=== PATIENT | male | born 1980 | race African-American/Black ===

== ENCOUNTER 2020-03-15 10:25 | Emergency (ER) | payer BC, OTHER ==
[~2020-03-15] VITALS: Ht 180.3 cm; Wt 95.3 kg
[2020-03-15] MEDS ORDERED: NOHOMEMEDICATIONS (10:33)
[2020-03-15 12:34] LABS: ABSOLUTE NEUTROPHILS 4.9 thou/uL (1.4-8.2); BASOPHILS 0.3 % (0.0-2.0); EOSINOPHILS 1.4 % (0.0-3.0); HEMATOCRIT 44.3 % (42.0-52.0); HEMOGLOBIN 14.9 gm/dL (14.0-18.0); LYMPHOCYTES 14.2 % (24.0-44.0); MCH 30.8 pg (26.0-34.0); MCHC 33.5 g/dL (28.0-37.0); MCV 91.8 fL (80.0-100.0); MONOCYTES 8.7 % (1.0-8.0); POLYS 75.4 % (36.0-66.0); RBC 4.82 mil/uL (4.50-6.00); RDW 12.7 % (10.5-14.5); WBC 6.5 thou/uL (4.0-11.0)
[2020-03-15 12:39] LABS: CALCIUM 9.3 mg/dL (8.5-10.1); POTASSIUM 3.7 mmol/L (3.5-5.1)
[2020-03-15 12:43] LABS: URINE BILIRUBIN NEGATIVE (Negative); URINE BLOOD NEGATIVE (Negative); URINE CLARITY CLEAR; URINE COLOR YELLOW; URINE GLUCOSE-RANDOM* NEGATIVE (Negative); URINE KETONES TRACE (Negative); URINE LEUKOCYTES-REFLEX NEGATIVE (Negative); URINE NITRITE-REFLEX NEGATIVE (Negative); URINE PROTEIN (DIPSTICK) NEGATIVE (Negative); URINE SPECIFIC GRAVITY >= 1.030 (1.005-1.035); URINE UROBILINOGEN 0.2 E.U./dl (0.2-1.0)
[2020-03-15 12:46] LABS: ALBUMIN 4.1 g/dL (3.4-5.0); TOTAL BILIRUBIN 0.7 mg/dL (0.2-1.0); TOTAL PROTEIN 7.6 g/dL (6.4-8.2)
[2020-03-15 12:53] LABS: PLATELET COUNT 163 thou/uL (150-400)
[2020-03-15] MEDS ORDERED: PREDNISONE 20 M20 MG PO (13:03)
[2020-03-15 13:15] VITALS: BP 124/74
== END 2020-03-15 13:16 | disposition home or self-care (01) ==
LOC: ER 10:25
PROVIDERS: Physician Assistant
DX: E86.0 Dehydration (principal); J30.9 Allergic rhinitis, unspecified